=== PATIENT | male | born 1975 | race African-American/Black ===

== ENCOUNTER 2023-05-21 17:31 | Emergency (ER) | payer MEDICAID, OTHER ==
[~2023-05-21] VITALS: Ht 185.4 cm; Wt 136.3 kg
[2023-05-21] MEDS ORDERED: cloNIDine HCL 0.1 MG TAB PO ONE (17:45)
[2023-05-21 20:18] VITALS: BP 143/85; PULSE 78; RESP 18; TEMP 96.9; O2SAT 99
== END 2023-05-21 23:07 | disposition left against medical advice (07) ==
LOC: ER 17:31
DX: R51.9 Headache, unspecified (principal); I10 Essential (primary) hypertension; Z53.21 Procedure and treatment not carried out due to patient leaving prior to being seen by health care provider
CPT/HCPCS: 70450